=== PATIENT | male | born 1925 | race Caucasian/White ===

== ENCOUNTER → 2017-06-10 | Outpatient (CLI) | payer MEDICARE, OTHER ==
[~2017-06-10] MED LIST: CLONAZEPAM1 MG PO; FOLIC ACID1 MG PO; FUROSEMIDE40 MG PO; GABAPENTIN300 MG PO; GLIMEPIRIDE4 MG PO; IRBESARTAN-HCT1 EAC1 PO; JANUVIA100 MG PO; LEVOTHYROXINE50 MCG PO; ROPINIROLE HCL2 MG PO; SAVAYSA PO; SPIRIVA18 MCG INH; SYMBICORT 16010.2 GM IH
--- NOTE | 2017-06-10 08:17 | Diagnostic Imaging Report ---
Exam: Head CT without contrast History: Memory loss Comparison studies: Head CT 10/29/2015 Technique: Axial images were obtained from the skull base to the vertex. Coronal and sagittal images reconstructed from the axial data. Intravenous contrast: None Findings: Scalp: No abnormalities. Bones: No fractures, blastic or lytic lesions. Brain volume: Mild generalized volume loss with slightly greater volume loss in the bilateral frontal and temporal lobes. No disproportionate hippocampal, cerebellar or brainstem atrophy. Ventricles: Mild compensatory dilatation. No hydrocephalus. Extra-axial spaces: Chronic bihemispheric hypodense subdural fluid collections (chronic subdural hematomas versus hygromas) retrospectively seen on the previous CT of 10/29/2015 have nearly completely resolved. There are mildly prominent extra axial spaces along the bifrontal convexities which may be due to volume loss or reflect small residual chronic subdural collections. Parenchyma: No mass, acute hemorrhage or acute or chronic cortical vascular insults. A few scattered hypodensities in the supratentorial white matter are nonspecific but most compatible with chronic small vessel ischemic changes. Sellar/suprasellar region: No abnormalities. Craniocervical junction: Patent foramen magnum. No Chiari one malformation. Incidental findings: Atherosclerotic calcifications in the carotid siphons and intradural vertebral arteries. Bilateral lens replacements related to previous cataract surgery. IMPRESSION: 1. Previously present chronic bihemispheric subdural fluid collections have nearly completely resolved. 2. No other changes from the previous head CT of 10/29/2015. 3. Mild generalized volume loss with slightly greater volume loss in the bilateral frontal and temporal lobes. 4. Mild chronic microvascular ischemic changes. Signed by: Dr. Leo Neal M.D. on 06/10/2017 8:14 AM
== END ==
LOC: CT 07:03
PROVIDERS: ATTEND Student in an Organized Health Care Education/Training Program
DX: R41.3 Other amnesia (principal)
CPT/HCPCS: 70450

== ENCOUNTER 2017-07-21 12:04 | Inpatient (IN) | payer MEDICARE, OTHER ==
[~2017-07-21] VITALS: Ht 167.6 cm; Wt 79.5 kg
--- OUTSIDE RECORDS SUMMARY | 2017-07-21 12:09 | XMS REPORT ---
Author Author [facility] Address Unknown Phone Unavailable Care Team Providers [facility] Former Name Role Phone DAJUAN WAITE Unavailable Unavailable Problems This patient has no known problems. Allergies, Adverse Reactions, Alerts This patient has no known allergies or adverse reactions. Medications This patient has no known medications. Results Test Description Test Time Test Comments Text Results Atomic Results Result Comments CT BRAIN WO [place] [address] Patient Name: MARLINE GOEL MR #: [id number] : 1925 Age/Sex: 89/M Req #: [id number] Adm Physician: Ordered by: DAJUAN WAITE M.D. Report #: [id number] Location: CT Room/Bed: Procedure: [id number] CT/CT BRAIN WO Exam Date: 06/10/17 Exam Time: 0725 REPORT STATUS: Signed Exam: Head CT without contrast History: Memory loss Comparison studies: Head CT 10/29/2015 Technique: Axial images were obtained from the skull base to the vertex. Coronal and sagittal images reconstructed from the axial data. Intravenous contrast: None Findings: Scalp: No abnormalities. Bones: No fractures, blastic or lytic lesions. Brain volume: Mild generalized volume loss with slightly greater volume loss in the bilateral frontal and temporal lobes. No disproportionate hippocampal, cerebellar or brainstem atrophy. Ventricles: Mild compensatory dilatation. No hydrocephalus. Extra-axial spaces: Chronic bihemispheric hypodense subdural fluid collections (chronic subdural hematomas versus hygromas) retrospectively seen on the previous CT of 2015 have nearly completely resolved. There are mildly prominent extra axial spaces along the bifrontal convexities which may be due to volume loss or reflect small residual chronic subdural collections. Parenchyma: No mass , acute hemorrhage or acute or chronic cortical vascular insults. A few scattered hypodensities in the supratentorial white matter are nonspecific but most compatible with chronic small vessel ischemic changes. Sellar/ suprasellar region: No abnormalities. Craniocervical junction: Patent foramen magnum. No Chiari one malformation. Incidental findings: Atherosclerotic calcifications in the carotid siphons and intradural vertebral arteries. Bilateral lens replacements related to previous cataract surgery. IMPRESSION: 1. Previously present chronic bihemispheric subdural fluid collections have nearly completely resolved. 2. No other changes from the previous head CT of 10/29/2015. 3. Mild generalized volume loss with slightly greater volume loss in the bilateral frontal and temporal lobes. 4. Mild chronic microvascular ischemic changes. Signed by: Dr. Yessy Neal M.D. on 06/10/2017 8:14 AM Dictated By: YESSY NEAL MD 3 Transcribed By: ADELITA on 06/10/17813 COPY TO: DAJUNA WAITE M.D.
[2017-07-21] MEDS ORDERED: SODIUM CHLORIDE 0.9% 1000ML 1,000 ML IV STA (12:37)
[2017-07-21 12:55] LABS: BASOPHILS % 0.1 % (0.0-1.0); HEMATOCRIT 39.5 % (38.2-49.6); HEMOGLOBIN 13.5 g/dL (14.0-18.0); LYMPHOCYTES # (AUTO) 1.4 (1.0-3.2); LYMPHOCYTES % 9.3 % (18.0-39.1); MEAN CORPUSCULAR HEMOGLOBIN 31.1 pg (28-32); MEAN CORPUSCULAR HGB CONC 34.2 g/dL (31-35); MONOCYTES # (AUTO) 1.4 (0.2-0.8); MONOCYTES % 9.7 % (4.4-11.3); NEUTROPHILS # (AUTO) 11.8 (2.1-6.9); NEUTROPHILS % 80.6 % (38.7-80.0); PLATELET COUNT 164 x10e3/uL (140-360); RED BLOOD COUNT 4.34 x10e6/uL (4.3-5.7); RED CELL DISTRIBUTION WIDTH 13.3 % (11.7-14.4)
[2017-07-21 13:08] LABS: ALBUMIN 2.9 g/dL (3.5-5.0); ALBUMIN/GLOBULIN RATIO 0.9 (0.8-2.0); ANION GAP 17.5 mmol/L (8-16); CALCIUM 9.1 mg/dL (8.4-10.2); CREATININE, SERUM 1.76 mg/dL (0.72-1.25); POTASSIUM 4.5 mmol/L (3.5-5.1)
[2017-07-21 13:11] LABS: CREATINE KINASE MB 2.1 ng/mL (0-5.0)
--- NOTE | 2017-07-21 13:40 | Diagnostic Imaging Report ---
PROCEDURE:CHEST SINGLE (PORTABLE) TECHNIQUE:Portable AP chest INDICATION:Fever; hypoglycemia; cough COMPARISON:None. FINDINGS: Bibasilar airspace opacities. Small pleural effusions (right greater than left). Upper lung zones are clear. Cardiac silhouette is obscured, with grossly normal heart size. 2-lead pacemaker of the left hemithorax; intact leads. Grossly intact skeleton with scoliosis. CONCLUSION: 1. Bilateral lower lobe airspace opacities consistent with atelectasis with or without superimposed pneumonia and pulmonary edema. 2. Small pleural effusions. Dictated by: Major Arrieta M.D. on 07/21/2017 at 13:41 Electronically approved by: Major Arrieta M.D. on 07/21/2017 at 13:41
[2017-07-21] MEDS ORDERED: PIPER-TAZ 3.375 GM 50 ML IV STA (13:57)
[2017-07-21] MEDS ORDERED: AZITHROMYCIN 500MG/NS 250 ML 250 ML IV STA (13:57)
[2017-07-21] MEDS ORDERED: ACETAMINOPHEN 325 MG TAB PO ONE (14:00)
[2017-07-21] MEDS ORDERED: SODIUM CHLORIDE 0.9% 1000ML 1,000 ML IV SCH (14:15)
[2017-07-21 15:02] LABS: BACTERIA,URINE MODERATE /HPF; BILIRUBIN,URINE NEGATIVE (NEGATIVE); CLARITY,URINE SL CLOUDY (CLEAR); COLOR,URINE YELLOW (YELLOW); KETONES,URINE NEGATIVE (NEGATIVE); LEUKOCYTE ESTERASE ,URINE NEGATIVE (NEGATIVE); NITRITE,URINE NEGATIVE (NEGATIVE); PROTEIN,URINE DIPSTICK 1+ (NEGATIVE); RBC,URINE 0-5 /HPF (0-5); URINE UROBILINOGEN 0.2 mg/dL (0.2 - 1); WBC,URINE (MAN) 0-5 /HPF (0-5)
[2017-07-21 15:03] LABS: EPITHELIAL CELLS,URINE RARE /LPF
[2017-07-21] MEDS ORDERED: AZITHROMYCIN 500MG/SOD CHL 0.9% 250ML BAG IV SCH (16:45)
[2017-07-21] MEDS: AZITHROMYCIN 500MG/NS 250 ML 250 ML IV SCH (16:55)
[2017-07-21] MEDS: SODIUM CHLORIDE 0.9% 1000ML 1,000 ML IV SCH (17:04)
[2017-07-21] MEDS ORDERED: POTASSIUM CHLO10 ME1 PO (17:09)
[2017-07-21] MEDS ORDERED: PIOGLITAZONE HC45 MG PO (17:09)
[2017-07-21] MEDS ORDERED: METOPROLOL SUCC25 MG PO (17:09)
[2017-07-21] MEDS ORDERED: METFORMIN HCL850 MG PO (17:09)
[2017-07-21] MEDS ORDERED: PANTOPRAZOLE SO40 MG PO (17:09)
[2017-07-21] MEDS: ALBUTEROL SULF 0.083% NEB SOLN 3 ML NEB NEB SCH ×2 (19:00→23:30)
[2017-07-21] MEDS: IPRATROPIUM BROMIDE 0.02% 2.5 ML NEB NEB SCH ×2 (19:00→23:30)
[2017-07-21] MEDS ORDERED: METOPROLOL TARTRATE 25 MG TAB PO ONE (19:15)
[2017-07-21] MEDS ORDERED: METOPROLOL TARTRATE INJ 1 MG/ML VIAL IV ONE (19:15)
[2017-07-21] MEDS ORDERED: AMIODARONE HCL 360MG 200 ML IV SCH (20:45)
[2017-07-21] MEDS ORDERED: AMIODARONE HCL 150MG 100 ML IV SCH (20:45)
[2017-07-21] MEDS ORDERED: AMIODARONE 900MG 500 ML IV ONE (20:45)
[2017-07-21] MEDS ORDERED: AMIODARONE HCL 100 ML IV ONE (20:45)
[2017-07-21] MEDS ORDERED: AMIODARONE 900MG 500 ML IV SCH (21:00)
[2017-07-21] MEDS: PIPER-TAZ 3.375 GM 50 ML IV SCH (23:46)
[2017-07-22] MEDS ORDERED: AMIODARONE HCL 360MG 200 ML IV SCH
[2017-07-22] MEDS: ACETAMINOPHEN 325 MG TAB PO PRN ×2 (00:02→17:30)
[2017-07-22] MEDS: SODIUM CHLORIDE 0.9% 1000ML 1,000 ML IV SCH ×3 (02:23→17:29)
[2017-07-22] MEDS: ALBUTEROL SULF 0.083% NEB SOLN 3 ML NEB NEB SCH ×6 (02:30→23:40)
[2017-07-22] MEDS: AMIODARONE 900MG 500 ML IV SCH (03:13)
[2017-07-22 04:47] LABS: BASOPHILS % 0.2 % (0.0-1.0); HEMATOCRIT 42.9 % (38.2-49.6); HEMOGLOBIN 14.1 g/dL (14.0-18.0); LYMPHOCYTES # (AUTO) 2.1 (1.0-3.2); LYMPHOCYTES % 13.5 % (18.0-39.1); MEAN CORPUSCULAR HEMOGLOBIN 30.8 pg (28-32); MEAN CORPUSCULAR HGB CONC 32.9 g/dL (31-35); MEAN CORPUSCULAR VOLUME 93.7 fL (81-99); MONOCYTES # (AUTO) 2.1 (0.2-0.8); MONOCYTES % 13.4 % (4.4-11.3); NEUTROPHILS # (AUTO) 11.5 (2.1-6.9); NEUTROPHILS % 72.4 % (38.7-80.0); PLATELET COUNT 212 x10e3/uL (140-360); RED BLOOD COUNT 4.58 x10e6/uL (4.3-5.7); RED CELL DISTRIBUTION WIDTH 13.5 % (11.7-14.4)
[2017-07-22 05:03] LABS: ANION GAP 18.7 mmol/L (8-16); CALCIUM 8.4 mg/dL (8.4-10.2); CREATININE, SERUM 1.54 mg/dL (0.72-1.25); POTASSIUM 4.7 mmol/L (3.5-5.1)
--- NOTE | 2017-07-22 06:03 | Diagnostic Imaging Report ---
CHEST SINGLE (PORTABLE), 07/22/2017 5:00 AM Technique: CHEST SINGLE (PORTABLE) Comparison: Previous day Clinical history: Pneumonia Findings: Stable cardiac silhouette, bones, soft tissues. Impression: 1. Lines/Tubes: Stable left chest wall pacer. 2. Persistent bibasilar airspace opacities which may reflect pneumonia/aspiration pneumonia. Small pleural effusions. Signed by: Dr Alice Tobin MD on 07/22/2017 5:59 AM
[2017-07-22] MEDS: IPRATROPIUM BROMIDE 0.02% 2.5 ML NEB NEB SCH ×3 (07:00→20:20)
[2017-07-22 08:04] LABS: ANISOCYTOSIS SLIGHT; BAND NEUTROPHILS % (MANUAL) 3 %; LYMPHOCYTES % (MANUAL) 11 % (19-48); MONOCYTES % (MANUAL) 11 % (3.4-9.0); MYELOCYTES % (MANUAL) 1 % (0-0); NEUTROPHILS % (MANUAL) 74 % (40-74); PLATELET ESTIMATE ADEQUATE; POIKILOCYTOSIS SLIGHT; RBC MORPHOLOGY COMMENT NORMAL
[2017-07-22 08:05] LABS: PLATELET MORPHOLOGY COMMENT NORMAL
[2017-07-22] MEDS: PIPER-TAZ 3.375 GM 50 ML IV SCH (08:43)
[2017-07-22 15:15] VITALS: BP 125/64
[2017-07-22 15:18] VITALS: BP 125/64
[2017-07-22 15:23] VITALS: BP 125/64
--- NOTE | 2017-07-22 16:28 | Consultation ---
DATE OF CONSULTATION: July 22, 2017 CARDIOLOGY CONSULTATION REQUESTING PHYSICIAN: Dr. Alcides Flores REASON FOR CONSULTATION: Atrial fibrillation. HISTORY OF PRESENT ILLNESS: This is an 89-year-old man with history of atrial fibrillation, hypertension, venous insufficiency status post ablation, who was admitted with complaint of shortness of breath. The patient reports he began feeling short of breath Thursday night. 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 He noted Thursday that he felt dizzy when he stood up. This was associated with nausea and emesis. He, therefore, presented to his primary care physician, Dr. Perez's office, on Thursday. While there, he was found to be hypoxic to the 80s with fever to 102.6 degrees Fahrenheit. He was subsequently sent to the ER for further evaluation. In the ER, chest x-ray revealed bilateral lower lobe air space opacities consistent with atelectasis with or without superimposed pneumonia and pulmonary edema and small pleural effusions as well as a leukocytosis of 14.69 and a fever of 103 degrees. The patient does endorse feeling slight, 1/10 to 2/10 in severity, right-sided chest pain briefly yesterday. He denied any palpitations or edema. However, he does note that he has been having shortness of breath with lying flat as well as symptoms suspicious for PND for the last week. REVIEW OF SYSTEMS: Negative, except as per HPI. PAST MEDICAL HISTORY 1. Atrial fibrillation. 2. Hypertension. 3. Venous insufficiency, status post ablation. PAST SURGICAL HISTORY: Permanent pacemaker insertion. ALLERGIES: NO KNOWN DRUG ALLERGIES. MEDICATIONS: Please see EMR. SOCIAL HISTORY: No tobacco or drugs. FAMILY HISTORY: Noncontributory. PHYSICAL EXAMINATION VITAL SIGNS: Temperature 97.9 degrees, pulse 60, respiratory rate 16, blood pressure 125/64, oxygen saturation 96% on 4 L nasal cannula. GENERAL: Well-developed, well-nourished, elderly man in no acute distress, awake and alert. HEENT: Normocephalic and atraumatic. Pupils are equal. No scleral icterus. NECK: Supple. No thyromegaly or cervical lymphadenopathy. No carotid bruit. LUNGS: Clear to auscultation bilaterally. No wheezes or crackles. CARDIOVASCULAR: Normal rate, regular rhythm. A 1/6 systolic murmur at the left sternal border. ABDOMEN: Soft. Nontender. EXTREMITIES: There is 2+ pitting edema of the bilateral lower extremities. NEURO: Nonfocal exam. LABS: WBC 15.91, hemoglobin 14.1, hematocrit 42.9, platelets 212. Sodium 140, potassium 4.7, chloride 99, CO2 17, BUN 39, creatinine 1.54. INR 1.21. EKG: Normal sinus rhythm, right bundle-branch block, left anterior fascicular block, bifascicular block. IMPRESSION 1. Pneumonia. 2. Atrial fibrillation, currently sinus rhythm. 3. Hypertension. 4. History of venous insufficiency, status post ablation. 5. Diabetes mellitus. 6. Hypothyroidism. RECOMMENDATIONS: Antibiotics per primary service. Patient's echocardiogram from the office will be reviewed. Check BNP. In the meantime, continue home cardiac medications. Monitor the patient on telemetry. The amiodarone drip may be stopped. Monitor blood pressure closely. Continue home Savaysa unless procedures are planned. Thank you for this consult. We will continue to follow. Job#: [id number]
[2017-07-22] MEDS ORDERED: METFORMIN HCL 850 MG TAB PO SCH (17:00)
[2017-07-22 17:01] VITALS: BP 165/88
[2017-07-22] MEDS: GABAPENTIN 300 MG CAP PO SCH (17:29)
[2017-07-22] MEDS: AZITHROMYCIN 500MG/NS 250 ML 250 ML IV SCH (17:29)
--- NOTE | 2017-07-22 18:57 | Consultation ---
DATE OF CONSULTATION: July 22, 2017 REASON FOR CONSULTATION: Fever. HISTORY OF PRESENT ILLNESS: This is an 89-year-old gentleman who has history of atrial fibrillation, hypertension, venous insufficiency, COPD, comes in with shortness of breath, fever, chills. Apparently, the patient was sick about 2 weeks ago with not feeling well, nausea or vomiting, but he got better, but then he started feeling really bad, nauseated, shortness of breath and cough. He went to see a physician who sent him to the emergency room because he was having fever and looked really bad. In the emergency room, he was evaluated with white count 14.6. Sodium 130, potassium 4.5, creatinine 1.76. Chest x-ray which was ordered showed bilateral lower lobe air space . Patient was admitted, infectious disease was consulted. He was seen by cardiology. PAST MEDICAL HISTORY: Significant for atrial fibrillation, hypertension, according to him also COPD. PAST SURGICAL HISTORY: Denies. ALLERGIES: NKDA. SOCIAL HISTORY: There is no smoking, drug abuse or alcohol use. FAMILY HISTORY: Otherwise hypertension. REVIEW OF SYSTEMS HEENT: Negative. PULMONARY: Negative. : Negative. SKIN: There is no rash. JOINTS: There is no erythema, edema. PHYSICAL EXAMINATION GENERAL: He is currently alert, oriented, does not seem to be in acute distress. VITALS: Stable currently. Had fever earlier. HEENT: Not icteric. NECK: Supple. CHEST: Clear. HEART: No murmur. ABDOMEN: Soft. Bowel sounds present. EXTREMITIES: No edema. IMPRESSION 1. Fever, chills, shortness of breath. 2. Pneumonia, community acquired present on admission. 3. Atrial fibrillation. 4. Hypertension. 5. Diabetes mellitus. 6. Hypothyroidism. 7. Acute tubular necrosis with underlying chronic kidney disease. RECOMMENDATIONS: He is on azithromycin and Zosyn, continue with that for time being. Await blood cultures, urine cultures. Recheck CBC. Recheck chem panel. Will follow with you. Job#: [id number] RUSS
[2017-07-22] MEDS: BUDESONIDE/FORMOTEROL 160/4.5MCG INHALER INH SCH (19:00)
[2017-07-22] MEDS ORDERED: DEXTROSE 50% SYRINGE 50 ML IV PRN (19:00)
[2017-07-22 20:03] VITALS: BP 121/63
[2017-07-22] MEDS: INSULIN LISPRO 100 UNIT/1 ML 3ML VIAL SQ SCH (21:53)
[2017-07-22] MEDS: INSULIN DETEMIR 100 UNIT/ML PEN SQ SCH (21:53)
[2017-07-22] MEDS: CLONAZEPAM 1 MG TAB PO SCH (21:54)
[2017-07-22] MEDS: PIPER-TAZ 3.375 GM 100 ML IV SCH (21:54)
[2017-07-22] MEDS ORDERED: PIPER-TAZ 3.375 GM 50 ML IV SCH (22:00)
[2017-07-22 23:29] VITALS: BP 131/64
[2017-07-23] VITALS (7 sets, daily range): BP systolic 101–146; BP diastolic 58–72
[2017-07-23] MEDS: ALBUTEROL SULF 0.083% NEB SOLN 3 ML NEB NEB SCH ×6 (02:50→23:15)
[2017-07-23] MEDS: IPRATROPIUM BROMIDE 0.02% 2.5 ML NEB NEB SCH ×4 (02:50→19:05)
[2017-07-23] MEDS: AMIODARONE 900MG 500 ML IV SCH (03:01)
[2017-07-23] MEDS: SODIUM CHLORIDE 0.9% 1000ML 1,000 ML IV SCH ×2 (04:24→14:34)
[2017-07-23] MEDS: LEVOTHYROXINE SODIUM 50 MCG TAB PO SCH (05:27)
[2017-07-23] MEDS: PIPER-TAZ 3.375 GM 100 ML IV SCH ×3 (05:27→22:22)
[2017-07-23] MEDS ORDERED: TIOTROPIUM 18 MCG INH POWDER INH SCH (06:00)
[2017-07-23 06:40] LABS: BASOPHILS % 0.2 % (0.0-1.0); EOSINOPHILS % 0.5 % (0.0-6.0); HEMATOCRIT 37.1 % (38.2-49.6); HEMOGLOBIN 12.4 g/dL (14.0-18.0); LYMPHOCYTES % 11.8 % (18.0-39.1); MEAN CORPUSCULAR HEMOGLOBIN 31.1 pg (28-32); MEAN CORPUSCULAR HGB CONC 33.4 g/dL (31-35); MONOCYTES % 11.6 % (4.4-11.3); NEUTROPHILS # (AUTO) 6.7 (2.1-6.9); NEUTROPHILS % 75.3 % (38.7-80.0); PLATELET COUNT 178 x10e3/uL (140-360); RED BLOOD COUNT 3.99 x10e6/uL (4.3-5.7); RED CELL DISTRIBUTION WIDTH 13.6 % (11.7-14.4)
[2017-07-23 07:08] LABS: BLOOD UREA NITROGEN 32 mg/dL (7-26); BUN/CREATININE RATIO 30 (6-25); CALCIUM 8.4 mg/dL (8.4-10.2); CARBON DIOXIDE 22 mmol/L (22-29); CHLORIDE 105 mmol/L (98-107); CREATININE, SERUM 1.08 mg/dL (0.72-1.25); EST GLOMERULAR FILTRATION RATE > 60 ML/MIN (60-); GLUCOSE 153 mg/dL (74-118); SODIUM 136 mmol/L (136-145)
[2017-07-23] MEDS: PIOGLITAZONE HCL 15 MG TAB PO SCH (08:03)
[2017-07-23] MEDS: FOLIC ACID 1 MG TAB PO SCH (08:03)
[2017-07-23] MEDS: GABAPENTIN 300 MG CAP PO SCH ×2 (08:03→16:55)
[2017-07-23] MEDS: FUROSEMIDE 40 MG TAB PO SCH (08:03)
[2017-07-23] MEDS: EDOXABAN TOSYLATE 30 MG TABLET PO SCH (08:03)
[2017-07-23] MEDS: ROPINIROLE HCL 2 MG TAB PO SCH (08:03)
[2017-07-23] MEDS: POTASSIUM CHLORIDE 10 MEQ TABCR PO SCH (08:04)
[2017-07-23] MEDS: INSULIN LISPRO 100 UNIT/1 ML 3ML VIAL SQ SCH ×4 (08:04→22:21)
[2017-07-23] MEDS ORDERED: METOPROLOL SUCCINATE 25 MG TAB XL PO SCH ×2 (09:00)
[2017-07-23] MEDS ORDERED: METOPROLOL TARTRATE INJ 1 MG/ML VIAL IV NR (11:15)
[2017-07-23] MEDS: BUDESONIDE/FORMOTEROL 160/4.5MCG INHALER INH SCH ×2 (11:40→19:05)
[2017-07-23] MEDS ORDERED: METOPROLOL TARTRATE INJ 1 MG/ML VIAL IV PRN (12:00)
--- NOTE | 2017-07-23 15:42 | Progress Note ---
DATE: July 23, 2017 CARDIOLOGY PROGRESS NOTE SUBJECTIVE: The patient denies chest pain or shortness of breath. OBJECTIVE VITAL SIGNS: Temperature 97.2 degrees, pulse 112, respiratory rate 20, blood pressure 101/70, oxygen saturation 96% on 4 L nasal cannula. GENERAL: Awake, alert, in no acute distress. LUNGS: Clear to auscultation bilaterally. No wheezes or crackles. CARDIOVASCULAR: Normal rate, regular rhythm. A 1/6 systolic murmur at the left sternal border. ABDOMEN: Soft. Nontender. EXTREMITIES: There is 2+ pitting edema of the bilateral lower extremities. CARDIAC MEDICATIONS 1. Furosemide 40 mg p.o. daily. 2. Levothyroxine 50 mcg p.o. daily. 3. Metoprolol succinate 25 mg p.o. daily. LABS: WBC 8.83, hemoglobin 12.4, hematocrit 37.1, platelets 178. Sodium 136, potassium 4, chloride 105, CO2 22, BUN 32, creatinine 1.08. BNP 784. TELEMETRY: Normal sinus rhythm. Episode of atrial fibrillation with rapid ventricular response earlier today. IMPRESSION 1. Community-acquired pneumonia. 2. Paroxysmal atrial fibrillation with rapid ventricular response, currently normal sinus rhythm. 3. Hypertension. 4. Diabetes mellitus. 5. Hypothyroidism. 6. History of venous insufficiency, status post ablation. RECOMMENDATIONS: Antibiotics per infectious disease. Titrate up metoprolol succinate for rate control. Continue monitoring the patient on telemetry. Start amiodarone for rhythm control. Resume the patient on his home Savaysa. Thank you for this consult. We will continue to follow. Job#: [id number]
[2017-07-23] MEDS: METOPROLOL SUCCINATE 25 MG TAB XL PO SCH (16:55)
[2017-07-23] MEDS: AZITHROMYCIN 500MG/NS 250 ML 250 ML IV SCH (16:55)
[2017-07-23] MEDS: PANTOPRAZOLE SOD 40 MG TABEC PO SCH (16:55)
[2017-07-23] MEDS: AMIODARONE HCL 200 MG TAB PO SCH (16:55)
[2017-07-23] MEDS: CLONAZEPAM 1 MG TAB PO SCH (21:00)
[2017-07-23] MEDS: INSULIN DETEMIR 100 UNIT/ML PEN SQ SCH (22:22)
[2017-07-24] MEDS: IPRATROPIUM BROMIDE 0.02% 2.5 ML NEB NEB SCH ×4 (00:10→19:35)
[2017-07-24] MEDS: SODIUM CHLORIDE 0.9% 1000ML 1,000 ML IV SCH ×3 (02:17→17:43)
[2017-07-24] MEDS: ALBUTEROL SULF 0.083% NEB SOLN 3 ML NEB NEB SCH ×6 (02:55→23:10)
[2017-07-24 06:00] VITALS: BP 165/77
[2017-07-24] MEDS: LEVOTHYROXINE SODIUM 50 MCG TAB PO SCH (06:00)
[2017-07-24] MEDS: PIPER-TAZ 3.375 GM 100 ML IV SCH ×3 (06:00→22:04)
[2017-07-24] MEDS: INSULIN LISPRO 100 UNIT/1 ML 3ML VIAL SQ SCH ×4 (07:30→20:46)
[2017-07-24] MEDS: BUDESONIDE/FORMOTEROL 160/4.5MCG INHALER INH SCH ×2 (07:35→19:35)
[2017-07-24 07:52] VITALS: BP 132/65
[2017-07-24 07:53] VITALS: BP 132/65
[2017-07-24] MEDS: ROPINIROLE HCL 2 MG TAB PO SCH (08:21)
[2017-07-24] MEDS: PIOGLITAZONE HCL 15 MG TAB PO SCH (08:21)
[2017-07-24] MEDS: FUROSEMIDE 40 MG TAB PO SCH (08:21)
[2017-07-24] MEDS: POTASSIUM CHLORIDE 10 MEQ TABCR PO SCH (08:21)
[2017-07-24] MEDS: AMIODARONE HCL 200 MG TAB PO SCH ×2 (08:21→17:43)
[2017-07-24] MEDS: GABAPENTIN 300 MG CAP PO SCH ×2 (08:21→17:43)
[2017-07-24] MEDS: FOLIC ACID 1 MG TAB PO SCH (08:21)
[2017-07-24] MEDS: EDOXABAN TOSYLATE 30 MG TABLET PO SCH (08:21)
[2017-07-24] MEDS: PANTOPRAZOLE SOD 40 MG TABEC PO SCH (08:21)
[2017-07-24] MEDS: METOPROLOL SUCCINATE 25 MG TAB XL PO SCH ×2 (08:22→17:43)
[2017-07-24] MEDS ORDERED: EDOXABAN TOSYLATE 30 MG TABLET PO SCH (09:00)
[2017-07-24 11:49] VITALS: BP 132/62
--- NOTE | 2017-07-24 14:27 | Progress Note ---
DATE: July 24, 2017 CARDIOLOGY PROGRESS NOTE SUBJECTIVE: The patient denies chest pain or shortness of breath. He states he is swelling. OBJECTIVE VITAL SIGNS: Temperature 98 degrees, pulse 64, respiratory rate 18, blood pressure 132/62, oxygen saturation 97% on 3 L nasal cannula. GENERAL: Awake, alert, in no acute distress. LUNGS: Clear to auscultation bilaterally. No wheezes or crackles. CARDIOVASCULAR: Normal rate, regular rhythm. A 1/6 systolic murmur at the left sternal border. ABDOMEN: Soft. Nontender. EXTREMITIES: There is 3+ pitting edema in dependent areas. CARDIAC MEDICATIONS 1. Metoprolol succinate 25 mg p.o. daily. 2. Amiodarone 200 mg p.o. b.i.d. 3. Furosemide 40 mg p.o. daily. 4. Levothyroxine 50 mcg p.o. daily. LABS: None today. TELEMETRY: Normal sinus rhythm with demand atrial pacing. IMPRESSION 1. Community-acquired pneumonia. 2. Paroxysmal atrial fibrillation with rapid ventricular response, currently normal sinus rhythm. 3. Hypertension. 4. Diabetes mellitus. 5. Hypothyroidism. 6. History of venous insufficiency, status post ablation. 7. Dlmax-ax-fvqjuds diastolic heart failure. RECOMMENDATIONS: Antibiotics per infectious disease. Increase Lasix to 40 IV b.i.d. as the patient's leukocytosis has resolved and blood pressure has remained stable. Continue current cardiac medications otherwise. Monitor the patient on telemetry for further episodes of atrial fibrillation. Continue Savaysa for CVA prophylaxis. Thank you for this consult. We will continue to follow. Job#: [id number]
[2017-07-24 17:34] VITALS: BP 130/62
[2017-07-24] MEDS: FUROSEMIDE INJ 10 MG/ML 4 ML VIAL IV SCH (17:43)
[2017-07-24 20:20] VITALS: BP 134/65
[2017-07-24] MEDS: CLONAZEPAM 1 MG TAB PO SCH (20:57)
[2017-07-24] MEDS: INSULIN DETEMIR 100 UNIT/ML PEN SQ SCH (21:45)
[2017-07-25] VITALS (9 sets, daily range): BP systolic 129–150; BP diastolic 63–82
[2017-07-25] MEDS: ALBUTEROL SULF 0.083% NEB SOLN 3 ML NEB NEB SCH ×6 (03:25→23:35)
[2017-07-25] MEDS: IPRATROPIUM BROMIDE 0.02% 2.5 ML NEB NEB SCH ×4 (03:25→20:05)
[2017-07-25] MEDS: PIPER-TAZ 3.375 GM 100 ML IV SCH ×3 (05:50→21:18)
[2017-07-25] MEDS: LEVOTHYROXINE SODIUM 50 MCG TAB PO SCH (06:25)
[2017-07-25 06:50] LABS: BASOPHILS % 0.3 % (0.0-1.0); EOSINOPHILS # (AUTO) 0.2 (0.0-0.4); EOSINOPHILS % 2.3 % (0.0-6.0); HEMOGLOBIN 12.3 g/dL (14.0-18.0); LYMPHOCYTES # (AUTO) 1.7 (1.0-3.2); LYMPHOCYTES % 18.7 % (18.0-39.1); MEAN CORPUSCULAR HEMOGLOBIN 30.8 pg (28-32); MEAN CORPUSCULAR HGB CONC 33.2 g/dL (31-35); MEAN CORPUSCULAR VOLUME 92.7 fL (81-99); MONOCYTES # (AUTO) 1.2 (0.2-0.8); MONOCYTES % 13.4 % (4.4-11.3); NEUTROPHILS # (AUTO) 5.8 (2.1-6.9); NEUTROPHILS % 64.2 % (38.7-80.0); PLATELET COUNT 216 x10e3/uL (140-360); RED BLOOD COUNT 3.99 x10e6/uL (4.3-5.7); RED CELL DISTRIBUTION WIDTH 13.8 % (11.7-14.4)
[2017-07-25 07:13] LABS: ANION GAP 10.1 mmol/L (8-16); BLOOD UREA NITROGEN 15 mg/dL (7-26); BUN/CREATININE RATIO 17 (6-25); CARBON DIOXIDE 27 mmol/L (22-29); CHLORIDE 100 mmol/L (98-107); CREATININE, SERUM 0.88 mg/dL (0.72-1.25); EST GLOMERULAR FILTRATION RATE > 60 ML/MIN (60-); POTASSIUM 3.1 mmol/L (3.5-5.1); SODIUM 134 mmol/L (136-145)
[2017-07-25 07:21] LABS: GLUCOSE 49 mg/dL (74-118)
[2017-07-25] MEDS: PIOGLITAZONE HCL 15 MG TAB PO SCH (07:30)
[2017-07-25] MEDS: INSULIN LISPRO 100 UNIT/1 ML 3ML VIAL SQ SCH ×4 (07:30→20:49)
[2017-07-25] MEDS: PANTOPRAZOLE SOD 40 MG TABEC PO SCH (09:32)
[2017-07-25] MEDS: ROPINIROLE HCL 2 MG TAB PO SCH (09:32)
[2017-07-25] MEDS: FOLIC ACID 1 MG TAB PO SCH (09:33)
[2017-07-25] MEDS: FUROSEMIDE INJ 10 MG/ML 4 ML VIAL IV SCH ×2 (09:33→17:05)
[2017-07-25] MEDS: EDOXABAN TOSYLATE 30 MG TABLET PO SCH (09:33)
[2017-07-25] MEDS: GABAPENTIN 300 MG CAP PO SCH ×2 (09:34→17:05)
[2017-07-25] MEDS: POTASSIUM CHLORIDE 10 MEQ TABCR PO SCH (09:34)
[2017-07-25] MEDS: AMIODARONE HCL 200 MG TAB PO SCH ×2 (09:34→17:05)
[2017-07-25] MEDS: METOPROLOL SUCCINATE 25 MG TAB XL PO SCH ×2 (09:35→17:23)
[2017-07-25] MEDS: BUDESONIDE/FORMOTEROL 160/4.5MCG INHALER INH SCH ×2 (10:51→20:05)
--- NOTE | 2017-07-25 13:10 | Progress Note ---
DATE: July 25, 2017 CARDIOLOGY PROGRESS NOTE SUBJECTIVE: No new complaints. OBJECTIVE: VITAL SIGNS: Temperature 97.5, heart rate 68, respiratory rate 18, blood pressure 142/68, O2 sat 99% on nasal cannula. GENERAL: No acute distress. CHEST: Clear to auscultation. CARDIOVASCULAR: Regular rate and rhythm. Normal S1 and S2. ABDOMEN: Soft. EXTREMITIES: Trace edema. CARDIOVASCULAR MEDICATIONS: 1. Amiodarone 200 mg b.i.d. 2. Furosemide 40 mg IV b.i.d. 3. Metoprolol succinate 25 mg b.i.d. STUDIES: White blood cells 9, hemoglobin 12.3, platelets 216. Creatinine 0.8, potassium 3.1, sodium 134, carbon dioxide 100, bicarbonate 27, BUN 15, glucose 151, calcium 8. Blood cultures negative for growth after 72 hours. TELEMETRY: Paced rhythm. ASSESSMENT: 1. Community-acquired pneumonia. 2. Paroxysmal atrial fibrillation, currently in sinus. 3. Hypertension. 4. Diabetes. 5. Hypothyroidism. 6. History of venous insufficiency, status post ablation. 7. Acute on chronic diastolic heart failure. PLAN 1. Continue current medications. Approaching euvolemia. Consider transitioning to oral diuretics tomorrow depending on continued response. 2. On Savaysa for thromboembolic prophylaxis. Continue. Job#: [id number] EV
[2017-07-25] MEDS ORDERED: POTASSIUM CHLORIDE 20 MEQ TAB CR PO NR (14:32)
--- NOTE | 2017-07-25 15:28 | Progress Note ---
DATE: July 25, 2017 INTERNAL MEDICINE PROGRESS NOTE SUBJECTIVE: The patient had an episode of hypoglycemia after he was food. The patient's blood sugar went to 157. Apparently the patient was not eating well because he did not like the food in the hospital. PHYSICAL EXAM: VITAL SIGNS: Blood pressure 150/71. Temperature 97.2. Heart rate 61 per minute. Respiratory rate is 20 per minute. Oxygen saturation 96%. HEART: Shows regular rhythm. Normal S1 and S2 sounds. LUNGS: Show decreased breath sounds bilaterally. ABDOMEN: Soft. No tenderness, no distention, no visceromegaly. EXTREMITIES: Show no evidence of cyanosis, edema or trauma. BLOOD WORK: We have a BMP: Sodium 134, potassium 3.1, chloride 100, CO2 27, BUN 15, creatinine 0.88, glucose 49. On the CBC: White blood count 9.00, hemoglobin 12.3, hematocrit 36.0, platelet count 216,000. AST 18, ALT 16, total bilirubin 1.8, alkaline phosphatase was 18. FINAL IMPRESSION: 1. Community-acquired pneumonia. 2. Paroxysmal atrial fibrillation with rapid ventricular response. Right now he is in normal sinus rhythm. 3. Essential hypertension. 4. Diabetes mellitus type 2 with episode of hypoglycemia. 5. Acquired hypothyroidism. 6. Hypokalemia. 7. Hyponatremia. 8. Elevated total bilirubin. PLAN OF TREATMENT: Potassium has been replaced. We are going to be holding the Levemir that he was taking before. Continue monitoring blood sugar a.c. and nightly. Continue gabapentin 300 mg twice a day. Potassium chloride 10 mEq daily. D50 IV push as needed for hypoglycemia. Metoprolol 5 mg IV q.6 h. as needed for tachycardia. Budesonide I inhalation twice a day. Levothyroxine 50 mcg daily. Actos 30 mg daily. We are going to hold on on the Actos and the Levemir, of course. Continue amiodarone 200 mg twice a day. Clonazepam 1 mg at bedtime. Requip 2 mg at bedtime. Spiriva 1 inhalation daily. Continue furosemide 40 mg twice a day. Folic acid 1 mg daily. Protonix 40 mg daily. Edoxaban tosylate 30 mg daily. Metoprolol 25 mg twice a day. I discussed the case with the nurse also with the family member. Potassium is going to be replaced. We are going to recheck the potassium and magnesium levels later on. Continue monitoring blood sugar very carefully. The patient is told to take snacks, and we are going to continue monitoring blood sugar. Job#: [id number] EV
[2017-07-25] MEDS: ACETAMINOPHEN 325 MG TAB PO PRN (21:18)
[2017-07-25] MEDS: CLONAZEPAM 1 MG TAB PO SCH (21:18)
[2017-07-26] VITALS (9 sets, daily range): BP systolic 114–149; BP diastolic 63–70
[2017-07-26] MEDS: IPRATROPIUM BROMIDE 0.02% 2.5 ML NEB NEB SCH ×4 (01:00→19:43)
[2017-07-26] MEDS: ALBUTEROL SULF 0.083% NEB SOLN 3 ML NEB NEB SCH ×5 (03:00→19:43)
[2017-07-26] MEDS: PIPER-TAZ 3.375 GM 100 ML IV SCH ×2 (05:41→16:09)
[2017-07-26] MEDS: LEVOTHYROXINE SODIUM 50 MCG TAB PO SCH (05:42)
[2017-07-26 06:46] LABS: ANION GAP 10.7 mmol/L (8-16); BLOOD UREA NITROGEN 13 mg/dL (7-26); BUN/CREATININE RATIO 14 (6-25); CALCIUM 8.1 mg/dL (8.4-10.2); CARBON DIOXIDE 32 mmol/L (22-29); CHLORIDE 100 mmol/L (98-107); CREATININE, SERUM 0.96 mg/dL (0.72-1.25); EST GLOMERULAR FILTRATION RATE > 60 ML/MIN (60-); GLUCOSE 150 mg/dL (74-118); SODIUM 140 mmol/L (136-145)
[2017-07-26 06:53] LABS: POTASSIUM 2.7 mmol/L (3.5-5.1)
[2017-07-26] MEDS ORDERED: POTASSIUM CHLORIDE 20 MEQ TAB CR PO ONE ×2 (07:30→08:30)
[2017-07-26] MEDS: PIOGLITAZONE HCL 15 MG TAB PO SCH (07:31)
[2017-07-26] MEDS: PANTOPRAZOLE SOD 40 MG TABEC PO SCH (07:32)
[2017-07-26] MEDS: INSULIN LISPRO 100 UNIT/1 ML 3ML VIAL SQ SCH ×4 (07:40→21:20)
[2017-07-26] MEDS: BUDESONIDE/FORMOTEROL 160/4.5MCG INHALER INH SCH ×2 (08:50→19:43)
[2017-07-26] MEDS: GABAPENTIN 300 MG CAP PO SCH ×2 (10:14→18:28)
[2017-07-26] MEDS: FOLIC ACID 1 MG TAB PO SCH (10:14)
[2017-07-26] MEDS: ROPINIROLE HCL 2 MG TAB PO SCH (10:14)
[2017-07-26] MEDS: EDOXABAN TOSYLATE 30 MG TABLET PO SCH (10:15)
[2017-07-26] MEDS: POTASSIUM CHLORIDE 10 MEQ TABCR PO SCH (10:15)
[2017-07-26] MEDS: AMIODARONE HCL 200 MG TAB PO SCH ×2 (10:15→18:28)
[2017-07-26] MEDS: FUROSEMIDE INJ 10 MG/ML 4 ML VIAL IV SCH ×3 (10:55→18:29)
[2017-07-26] MEDS: METOPROLOL SUCCINATE 25 MG TAB XL PO SCH ×3 (10:55→18:50)
--- NOTE | 2017-07-26 12:56 | Progress Note ---
DATE: July 26, 2017 INTERNAL MEDICINE PROGRESS NOTE SUBJECTIVE: Patient is doing well. No significant complaints. PHYSICAL EXAMINATION HEART: Shows regular rate. Normal S1 and S2 sounds. LUNGS: Clear bilaterally. ABDOMEN: Soft. EXTREMITIES: Show no evidence of cyanosis, edema or trauma. VITAL SIGNS: Blood pressure 136/63, temperature 98.2, heart rate 67 per minute, respiratory rate 16 per minute, oxygen saturation at 60%. On the BMP, sodium 140, potassium 2.7, chloride 100, CO2 32, BUN 13, creatinine 0.96, glucose 150. On the CBC, white blood count 9, hemoglobin 12.3, hematocrit 37, and platelet count 216,000. AST 18, ALT 16, total bilirubin 1.8, and alkaline phosphatase 68. FINAL IMPRESSION 1. Most likely aspiration pneumonia. 2. Paroxysmal atrial fibrillation with rapid ventricular response, currently in normal sinus rhythm. 3. Hypertension. 4. Diabetes mellitus, type 2. 5. Acquired hypothyroidism. 6. Hypokalemia. PLAN OF TREATMENT 1. Continue albuterol and Atrovent q.6 h. and q.4 h. as needed. 2. Continue Zosyn q.8 h. 3. Continue Tylenol 650 mg q.4 h. as needed. 4. Gabapentin 300 mg twice a day. 5. Potassium chloride 10 mg daily. 6. as needed for blood sugar at 160. 7. Amiodarone 200 mg twice a day. 8. Budesonide 1 inhalation twice a day. 9. Levothyroxine 50 mcg once a day. 10. Actos 30 mg daily. 11. Continue monitoring blood sugar a.c. and at bedtime. 12. Continue furosemide 40 mg twice a day. 13. Continue clonazepam 1 mg at bedtime. 14. Requip 2 mg daily. 15. Spiriva 1 inhalation daily. 16. Metoprolol 25 mg twice a day. 17. Folic acid 1 mg daily. 18. Protonix 40 mg daily. 19. 30 mg daily. 20. Metoprolol 5 mg IV q.6 h. as needed for rapid heart rate. We are going to recheck a BMP and magnesium level. Job#: [id number] RI
[2017-07-26] MEDS ORDERED: MAGNESIUM SULFATE 2GM/50ML IV ONE (13:45)
[2017-07-26] MEDS ORDERED: MAGNESIUM SULFATE 2GM/50ML 50 ML IV ONE (13:45)
--- NOTE | 2017-07-26 14:21 | Progress Note ---
DATE: July 26, 2017 CARDIOLOGY PROGRESS NOTE SUBJECTIVE: Shortness of breath improving. OBJECTIVE VITALS: Temperature 98.2, heart rate 67, respiratory rate 18, blood pressure 148/69, O2 sat 98% on 3 L per minute cannula. GENERAL: No acute distress. NECK: No JVD. CHEST: With wheezing and decreased breath sounds. CARDIOVASCULAR: Regular rate and rhythm. Normal S1 and S2. ABDOMEN: Soft. EXTREMITIES: With 1+ edema to lower extremities bilaterally. CARDIOVASCULAR MEDICATIONS 1. Furosemide 40 mg IV b.i.d. 2. Metoprolol succinate 25 mg b.i.d. p.o. 3. Amiodarone 200 mg b.i.d. p.o. STUDIES: For today, sodium 140, potassium 2.7, chloride 100, bicarbonate 32, BUN 13, creatinine 0.96, glucose 161, magnesium 1. Telemetry is paced rhythm. ASSESSMENT 1. Electrolyte derangements, undergoing replacement. 2. Pneumonia, suspected aspiration related. 3. Paroxysmal atrial fibrillation with episodes of rapid ventricular response, currently in paced rhythm. 4. Hypertension. 5. Diabetes mellitus. 6. Hypothyroidism. 7. History of venous insufficiency, status post ablation. 8. Adwxs-tj-gbofxnh diastolic heart failure. RECOMMENDATIONS: Continue IV diuretics as the patient remains with volume overload on exam. On thromboembolic prophylaxis, continue. Replete electrolytes. Job#: [id number] DEVAN
[2017-07-26 16:40] LABS: POTASSIUM 3.3 mmol/L (3.5-5.1)
[2017-07-26 16:48] LABS: MAGNESIUM 1.1 MG/DL (1.3-2.1)
[2017-07-26] MEDS: VANCOMYCIN 1GM/NS 250 ML 250 ML IV SCH (20:42)
[2017-07-26] MEDS: ACETAMINOPHEN 325 MG TAB PO PRN (21:34)
[2017-07-26] MEDS: CLONAZEPAM 1 MG TAB PO SCH (21:34)
[2017-07-26] MEDS: AZITHROMYCIN 500MG/NS 250 ML 250 ML IV SCH (22:24)
[2017-07-26] MEDS: CEFEPIME HCL 1 GM VIAL IV SCH (23:35)
[2017-07-27] VITALS (7 sets, daily range): BP systolic 124–140; BP diastolic 56–108
[2017-07-27] MEDS ORDERED: PIPER-TAZ 3.375 GM 100 ML IV SCH
[2017-07-27] MEDS: IPRATROPIUM BROMIDE 0.02% 2.5 ML NEB NEB SCH ×4 (00:05→20:56)
[2017-07-27] MEDS: ALBUTEROL SULF 0.083% NEB SOLN 3 ML NEB NEB SCH ×7 (00:05→23:30)
[2017-07-27] MEDS: CEFEPIME HCL 1 GM VIAL IV SCH ×3 (06:01→22:00)
[2017-07-27] MEDS: LEVOTHYROXINE SODIUM 50 MCG TAB PO SCH (06:01)
[2017-07-27] MEDS: VANCOMYCIN 1GM/NS 250 ML 250 ML IV SCH ×2 (06:31→20:50)
--- NOTE | 2017-07-27 06:40 | Diagnostic Imaging Report ---
CHEST 2 VIEWS, 07/27/2017 6:00 AM Technique: CHEST 2 VIEWS Comparison: 07/22/2017 Clinical history: Pneumonia Findings: Stable cardiac silhouette, bones, soft tissues. Impression: 1. Lines/Tubes: Stable left chest wall pacer. 2. Persistent though decreased bibasilar airspace opacities which may reflect improving atelectasis or pneumonia/aspiration pneumonia. 3. Small pleural effusions, decreased on the right. Signed by: Dr Alice Tobin MD on 07/27/2017 6:37 AM
[2017-07-27] MEDS: BUDESONIDE/FORMOTEROL 160/4.5MCG INHALER INH SCH ×2 (07:05→20:56)
[2017-07-27 08:22] LABS: ANION GAP 14.5 mmol/L (8-16); BLOOD UREA NITROGEN 15 mg/dL (7-26); BUN/CREATININE RATIO 16 (6-25); CALCIUM 8.2 mg/dL (8.4-10.2); CARBON DIOXIDE 31 mmol/L (22-29); CHLORIDE 99 mmol/L (98-107); CREATININE, SERUM 0.96 mg/dL (0.72-1.25); EST GLOMERULAR FILTRATION RATE > 60 ML/MIN (60-); GLUCOSE 130 mg/dL (74-118); POTASSIUM 3.5 mmol/L (3.5-5.1); SODIUM 141 mmol/L (136-145)
[2017-07-27] MEDS: PIOGLITAZONE HCL 15 MG TAB PO SCH (09:00)
[2017-07-27] MEDS: PANTOPRAZOLE SOD 40 MG TABEC PO SCH (09:00)
[2017-07-27] MEDS: INSULIN LISPRO 100 UNIT/1 ML 3ML VIAL SQ SCH ×4 (09:00→21:00)
[2017-07-27] MEDS: GABAPENTIN 300 MG CAP PO SCH ×2 (09:22→17:27)
[2017-07-27] MEDS: AMIODARONE HCL 200 MG TAB PO SCH ×2 (09:22→17:27)
[2017-07-27] MEDS: FOLIC ACID 1 MG TAB PO SCH (09:22)
[2017-07-27] MEDS: EDOXABAN TOSYLATE 30 MG TABLET PO SCH (09:22)
[2017-07-27] MEDS: ROPINIROLE HCL 2 MG TAB PO SCH (09:22)
[2017-07-27] MEDS: FUROSEMIDE INJ 10 MG/ML 4 ML VIAL IV SCH ×2 (09:22→17:27)
[2017-07-27] MEDS: POTASSIUM CHLORIDE 10 MEQ TABCR PO SCH (09:22)
[2017-07-27] MEDS: METOPROLOL SUCCINATE 25 MG TAB XL PO SCH ×2 (09:23→17:27)
--- NOTE | 2017-07-27 12:27 | Progress Note ---
DATE: July 27, 2017 CARDIOLOGY PROGRESS NOTE SUBJECTIVE: The patient denies chest pain or shortness of breath. He is on 2 L nasal cannula. OBJECTIVE VITAL SIGNS: Temperature 98.5 degrees, pulse 60, respiratory rate 17, blood pressure 152/87, oxygen saturation 96% on 2 L nasal cannula. GENERAL: Awake, alert, in no acute distress. LUNGS: Clear to auscultation bilaterally. No wheezes or crackles. CARDIOVASCULAR: Normal rate, regular rhythm. A 1/6 systolic murmur at the left sternal border. Normal S1 and S2. ABDOMEN: Soft. Nontender. EXTREMITIES: There is 2+ pitting edema in bilateral lower extremities. CARDIAC MEDICATIONS 1. Metoprolol succinate 25 mg p.o. b.i.d. 2. Furosemide 20 mg IV b.i.d. 3. Amiodarone 200 mg p.o. b.i.d. 4. Levothyroxine 50 mcg p.o. daily. LABS: Sodium 141, potassium 3.5, chloride 99, CO2 31, BUN 15, creatinine 0.96. TELEMETRY: Normal sinus rhythm. IMPRESSION 1. Electrolyte derangement. 2. Pneumonia, suspect aspiration related. 3. Paroxysmal atrial fibrillation with rapid ventricular response, currently sinus rhythm. 4. Ggdei-vn-vfztbhc diastolic heart failure. 5. Acute hypoxic respiratory failure. 6. Hypertension. 7. Diabetes mellitus. 8. Hypothyroidism. 9. History of venous insufficiency, status post ablation. RECOMMENDATIONS: IV antibiotics per infectious disease. Continue IV diuretic as he remains overloaded on exam. Evaluate oxygen requirements for home. Replete electrolytes. Continue current cardiac medications otherwise. Thank you for this consult. We will continue to follow. Job#: [id number]
[2017-07-27] MEDS: AZITHROMYCIN 500MG/NS 250 ML 250 ML IV SCH (19:00)
[2017-07-27] MEDS: CLONAZEPAM 1 MG TAB PO SCH (21:00)
[2017-07-28] MEDS: IPRATROPIUM BROMIDE 0.02% 2.5 ML NEB NEB SCH ×3 (03:12→14:35)
[2017-07-28] MEDS: ALBUTEROL SULF 0.083% NEB SOLN 3 ML NEB NEB SCH ×3 (03:15→14:35)
[2017-07-28 03:50] VITALS: BP 143/69
[2017-07-28] MEDS: CEFEPIME HCL 1 GM VIAL IV SCH ×2 (06:00→15:30)
[2017-07-28] MEDS: LEVOTHYROXINE SODIUM 50 MCG TAB PO SCH (06:00)
[2017-07-28] MEDS: VANCOMYCIN 1GM/NS 250 ML 250 ML IV SCH (06:21)
[2017-07-28] MEDS: BUDESONIDE/FORMOTEROL 160/4.5MCG INHALER INH SCH (07:05)
[2017-07-28 08:00] VITALS: BP 143/72
[2017-07-28] MEDS: PIOGLITAZONE HCL 15 MG TAB PO SCH (08:00)
[2017-07-28] MEDS: INSULIN LISPRO 100 UNIT/1 ML 3ML VIAL SQ SCH ×2 (08:00→12:15)
[2017-07-28] MEDS: PANTOPRAZOLE SOD 40 MG TABEC PO SCH (08:00)
[2017-07-28] MEDS: FUROSEMIDE INJ 10 MG/ML 4 ML VIAL IV SCH (08:59)
[2017-07-28] MEDS: POTASSIUM CHLORIDE 10 MEQ TABCR PO SCH (08:59)
[2017-07-28] MEDS: GABAPENTIN 300 MG CAP PO SCH (08:59)
[2017-07-28] MEDS: AMIODARONE HCL 200 MG TAB PO SCH (08:59)
[2017-07-28] MEDS: ROPINIROLE HCL 2 MG TAB PO SCH (08:59)
[2017-07-28] MEDS: FOLIC ACID 1 MG TAB PO SCH (08:59)
[2017-07-28] MEDS: EDOXABAN TOSYLATE 30 MG TABLET PO SCH (08:59)
[2017-07-28] MEDS: METOPROLOL SUCCINATE 25 MG TAB XL PO SCH (09:00)
[2017-07-28 09:02] VITALS: BP 143/84
--- NOTE | 2017-07-28 11:04 | Progress Note ---
DATE: July 28, 2017 CARDIOLOGY PROGRESS NOTE SUBJECTIVE: The patient feels well. He has no complaints. He is pending transfer to [place]. OBJECTIVE VITAL SIGNS: Temperature 98.5 degrees, pulse 72, respiratory rate 20, blood pressure 143/84, oxygen saturation 93% on 2 L nasal cannula. GENERAL: Elderly man awake, alert, in no acute distress. LUNGS: Clear to auscultation bilaterally. No wheezes or crackles. CARDIOVASCULAR: Normal rate, regular rhythm. A 1/6 systolic murmur at the left sternal border. Normal S1 and S2. ABDOMEN: Soft. Nontender. EXTREMITIES: There is 2+ pitting edema in bilateral lower extremities. CARDIAC MEDICATIONS 1. Metoprolol succinate 25 mg p.o. b.i.d. 2. Furosemide 40 mg IV b.i.d. 3. Amiodarone 200 mg p.o. b.i.d. 4. Levothyroxine 50 mcg p.o. daily. LABS: None today. TELEMETRY: Normal sinus rhythm. IMPRESSION 1. Electrolyte derangement. 2. Pneumonia, suspect aspiration. 3. Paroxysmal atrial fibrillation with rapid ventricular response, currently sinus rhythm. 4. Kacfo-hr-[id number] diastolic heart failure. 5. Acute hypoxic respiratory failure. 6. Hypertension. 7. Diabetes mellitus. 8. Hypothyroidism. 9. History of venous insufficiency, status post ablation. RECOMMENDATIONS: IV antibiotics per infectious disease. Continue IV diuretic as he remains clinically volume overloaded. The patient is being evaluated for transfer to [place]. Continue current cardiac medications. If no procedures are planned, resume patient's edoxaban. Thank you for this consult. We will continue to follow. Job#: [id number]
[2017-07-28 12:28] VITALS: BP 124/66
[2017-07-29] MEDS ORDERED: EDOXABAN TOSYLATE 30 MG TABLET PO SCH (09:00)
== END 2017-07-28 15:45 | DRG 871 ==
LOC: ER 12:04 → ERHOLD 18:28 → IMCU 07-22 14:35
DX: A41.9 Sepsis, unspecified organism (principal); J69.0 Pneumonitis due to inhalation of food and vomit; J15.9 Unspecified bacterial pneumonia; N17.0 Acute kidney failure with tubular necrosis; I50.33 Acute on chronic diastolic (congestive) heart failure; J96.01 Acute respiratory failure with hypoxia; I13.0 Hypertensive heart and chronic kidney disease with heart failure and stage 1 through stage 4 chronic kidney disease, or unspecified chronic kidney disease; E87.1 Hypo-osmolality and hyponatremia; J44.9 Chronic obstructive pulmonary disease, unspecified; R11.2 Nausea with vomiting, unspecified; R09.02 Hypoxemia; Z95.810 Presence of automatic (implantable) cardiac defibrillator; E86.0 Dehydration; I87.2 Venous insufficiency (chronic) (peripheral); E03.9 Hypothyroidism, unspecified; E11.22 Type 2 diabetes mellitus with diabetic chronic kidney disease; I48.0 Paroxysmal atrial fibrillation; E11.649 Type 2 diabetes mellitus with hypoglycemia without coma; E87.6 Hypokalemia; N18.2 Chronic kidney disease, stage 2 (mild)
CPT/HCPCS: 36415; 71045; 71046; 80048; 80053; 81001; 82550; 82553; 82948; 83605; 83735; 83880; 84132; 84484; 85025; 87040; 87086; 93005; 93970; 94640; 96360; 96372; 99284; J0456; J0692; J1940; J2543; J3370; J7030